=== PATIENT | female | born 1985 | race Caucasian/White ===

== ENCOUNTER 2024-02-19 05:49 | Observation (INO) | payer OTHER ==
[2024-02-18 12:43] VITALS: BMI 30.8
[2024-02-19] MEDS ORDERED: Lidocaine 1% PF 5 ML VIAL ONE (06:25)
[2024-02-19] MEDS ORDERED: Rocuronium Bromide 10 MG/ML (10ML VIAL) ONE (06:25)
[2024-02-19] MEDS ORDERED: Ondansetron PF 4 MG/2 ML Vial ONE (06:25)
[2024-02-19] MEDS ORDERED: CeleCOXIB 100 MG CAP ONE (06:25)
[2024-02-19] MEDS ORDERED: Dexamethasone 4 mg/ml Vial ONE ×2 (06:25→07:54)
[2024-02-19] MEDS ORDERED: SUGAMMADEX SODIUM 200 MG/2 ML VIAL ONE (06:25)
[2024-02-19] MEDS ORDERED: PROPOFOL 20 ML ONE (06:25)
[2024-02-19] MEDS ORDERED: Famotidine/PF 20 mg/2ml Vial ONE (06:26)
[2024-02-19] MEDS ORDERED: Gabapentin 300 MG CAP ONE (06:26)
[2024-02-19] MEDS ORDERED: Dexmedetomidine 200 MCG/2 ML VIAL ONE (06:28)
[2024-02-19] MEDS ORDERED: diphenhydrAMINE 50 MG/ML VIAL ONE (06:28)
[2024-02-19] MEDS ORDERED: ePHEDrine Sulfate 50 MG/10 ML VIAL ONE (06:30)
[2024-02-19] MEDS ORDERED: Sevoflurane 250 ML INH ANEST BOTTLE ONE (06:32)
[2024-02-19 06:38] LABS: BHCG - Serum Negative (NEGATIVE); Pregs Control Background? CLEAR/WHITE (CLR/WHITE); Pregs Control Bar Appear? YES (CONTROL BAR)
[2024-02-19] MEDS ORDERED: fentaNYL 50 mcg/mL 1 mL Vial ONE ×4 (06:39→10:16)
[2024-02-19] MEDS ORDERED: Bupivacaine HCl 0.5%/Epinephrine 1:200,000/PF 30 ml Vial ONE (06:50)
[2024-02-19 07:04] LABS: Hematocrit 27.8 % (34.9-44.5); Hemoglobin 7.8 g/dL (12.0-15.5); Mean Corpuscular HGB CONC 28.1 g/dL (32.0-36.0); Mean Corpuscular Hemoglobin 19.4 pg (27.0-33.0); Mean Corpuscular Volume 69.2 fL (81.6-98.3); Mean Platelet Volume 9.4 fL (7.4-10.4); Platelet Count 246 10x3/uL (150-450); RBC Distribution Width 16.2 % (11.5-14.5); Red Blood Cell (RBC) Count 4.02 10x6/uL (3.90-5.03); White Blood Cell (WBC) Count 4.1 10x3/uL (3.5-10.5)
[2024-02-19] MEDS ORDERED: Midazolam HCl 2 mg/2 ml Vial ONE (07:12)
[2024-02-19] MEDS ORDERED: CEFAZOLIN 2 GM VIAL ONE (07:20)
[2024-02-19] MEDS ORDERED: Albumin 5% 0 ML ONE (07:20)
[2024-02-19] MEDS ORDERED: PHENYLEPHRINE-NS 100 MCG/ML 10 ML SYRINGE ONE (07:44)
[2024-02-19] MEDS ORDERED: Zolpidem Tartrate 5 MG TAB PO PRN (11:20)
[2024-02-19] MEDS ORDERED: Bisacodyl 10 MG SUPP PR PRN (11:20)
[2024-02-19] MEDS ORDERED: Acetaminophen 325 MG TAB PO PRN (11:20)
[2024-02-19] MEDS ORDERED: diphenhydrAMINE 25 MG CAP PO PRN (11:20)
[2024-02-19] MEDS ORDERED: Morphine 2 MG/ML VIAL SLOW IVP PRN (11:20)
[2024-02-19] MEDS: Ketorolac Tromethamine 30 MG (1 mL) VIAL IVP SCH (11:57)
[2024-02-19] MEDS: Simethicone Chewable 80 MG TAB PO PRN (11:57)
[2024-02-19] MEDS: Sodium Chloride 0.9% 1,000 ML IV SCH (11:57)
[2024-02-19] MEDS: HYDROcodone/Acetaminophen 5/325 mg Tablet PO PRN ×2 (16:24→21:04)
[2024-02-19] MEDS: Ondansetron PF 4 MG/2 ML Vial IVP PRN (19:42)
[2024-02-20 08:13] VITALS: BP 116/56; TEMP 98.4
[2024-02-20] MEDS: Promethazine HCl 25 MG/ML VIAL IM PRN (12:33)
[2024-02-24] MEDS ORDERED: Ibuprofen 800 MG TAB PO SCH (22:00)
== END 2024-02-20 12:50 ==
LOC: CSHSDC 05:49 → CSHANTE 11:14 → INTOOBSV 11:14 → EEVIPCON 11:14
PROVIDERS: ADMIT Obstetrics & Gynecology; ATTEND Obstetrics & Gynecology
PROC: 0UT90ZZ Resection of Uterus, Open Approach (ICD-10-PCS; principal; 2024-02-20)
DX: D25.9 Leiomyoma of uterus, unspecified (principal); N80.03 Adenomyosis of the uterus; N72 Inflammatory disease of cervix uteri; N87.9 Dysplasia of cervix uteri, unspecified; N88.8 Other specified noninflammatory disorders of cervix uteri; D64.9 Anemia, unspecified; Z91.041 Radiographic dye allergy status; Z88.0 Allergy status to penicillin; Z79.899 Other long term (current) drug therapy
CPT/HCPCS: 84703; 85027; 86850; 86900; 86901; 88307; J1100; J1200; J1885; J2250; J2405; J2550; J2704; J3010; J3490; J7030; P9045